=== PATIENT | male | born 2000 | race Caucasian/White ===

== ENCOUNTER 2022-05-21 08:45 | Emergency (ER) | payer SELFPAY ==
[2022-05-21 09:46] LABS: Bilirubin Neg (Negative); Blood, Urine Negative (Negative); Clarity Clear (Clear); Glucose, Urine (Dipstick) Normal (Negative); Ketone, Urine Negative (Negative); Leukocyte Negative (Negative); Nitrite Negative (Negative); Protein, Urine (Dipstick) Negative (Neg-Trace); Urobilinogen Normal mg/dL (Less than 2)
== END 2022-05-21 10:52 | disposition home or self-care (01) ==
LOC: CSHERS 08:45
DX: N50.811 Right testicular pain (principal)
CPT/HCPCS: 76870; 81003; 93976